=== PATIENT | male | born 1985 | race Hispanic/Latino ===

== ENCOUNTER 2018-12-12 20:42 | Emergency (ER) | payer MEDICAID, OTHER ==
[2018-12-12 21:28] LABS: APPEARANCE,URINE Clear (CLEAR); BILIRUBIN,URINE Moderate (NEGATIVE); COLOR,URINE Dark Yellow (YELLOW); GLUCOSE, URINE (UA) Negative (NEGATIVE); KETONES,URINE Trace mg/dL (NEGATIVE); LEUKOCYTE ESTERASE ,URINE Trace (NEGATIVE); NITRATE,URINE Positive (NEGATIVE); OCCULT BLOOD,URINE Negative (NEGATIVE); PH,URINE 6.5 (5.0-8.0); PROTEIN,URINE Negative (NEGATIVE); UROBILINOGEN,URINE >=8.0 mg/dL (0.2-1.0)
[2018-12-12 21:35] LABS: AMPHET/METH SCREEN,URINE NEGATIVE (NEGATIVE); BARBITURATE SCREEN, URINE NEGATIVE (NEGATIVE); BENZODIAZEPINES SCREEN,URINE NEGATIVE (NEGATIVE); CANNABINOID SCREEN,URINE POSITIVE (NEGATIVE); COCAINE SCREEN,URINE NEGATIVE (NEGATIVE); OPIATE SCREEN,URINE NEGATIVE (NEGATIVE); PHENCYCLIDINE SCREEN,URINE NEGATIVE (NEGATIVE)
[2018-12-12 21:38] LABS: RBC,URINE 0-1 /HPF (0-1); WBC,URINE 0-1 /HPF (0-1)
[2018-12-12 21:39] LABS: BACTERIA,URINE Few /HPF (None Seen); SQUAMOUS EPITHELIAL CELL,UR Rare /HPF (0-2)
[2018-12-12 21:44] LABS: BASOPHILS % (AUTO) 0.4 % (0.0-5.0); EOSINOPHILS % (AUTO) 0.9 % (0.0-8.0); HEMATOCRIT 40.8 % (42-54); LYMPHOCYTES % (AUTO) 18.7 % (21.0-51.0); MEAN CORPUSCULAR HEMOGLOBIN 32.5 pg (27.0-33.0); MEAN CORPUSCULAR VOLUME 92.9 fL (79-99); MONOCYTES % (AUTO) 7.6 % (3.0-13.0); NEUTROPHILS % (AUTO) 72.4 % (40.0-77.0); PLATELET COUNT (AUTO) 59 K/uL (130-400); RED BLOOD CELL COUNT(AUTO) 4.39 MIL/uL (4.50-6.20); RED CELL DISTRIBUTION WIDTH 14.9 % (11.0-15.5); WHITE BLOOD COUNT (AUTO) 7.3 K/uL (4.8-10.8)
[2018-12-12 21:51] LABS: CHLORIDE 98 mmol/L (101-111); CREATININE 0.8 mg/dL (0.5-1.5); GLOMERULAR FILTR. RATE CALC 118 mL/min (>60)
[2018-12-12 21:54] LABS: CARBON DIOXIDE 28 mmol/L (21-32); GLUCOSE,RANDOM 104 mg/dL (70-105); SODIUM SERUM 136 mmol/L (136-145); UREA NITROGEN, BLOOD 7 mg/dL (7-18)
[2018-12-12 21:56] LABS: INR 1.55 (0.85-1.15); PROTHROMBIN TIME 16.1 SEC (9.6-11.6)
[2018-12-12 22:04] LABS: ALBUMIN 3.5 g/dL (3.5-5.0); TOTAL PROTEIN, SERUM 8.5 g/dL (6.0-8.3)
[2018-12-12] MEDS ORDERED: POTASSIUM CHLORIDE 10% ELIXIR 20 MEQ/15 ML UDCUP ONE (22:05)
[2018-12-12 22:06] LABS: PLATELET MORPHOLOGY DECREASED
[2018-12-12 22:07] LABS: ALANINE AMINOTRANSFERASE 65 U/L (12-78); ALCOHOL, BLOOD 49 mg/dL (0-10); ASPARTATE AMINOTRANSFERASE 175 U/L (10-37); BILIRUBIN,TOTAL 6.3 mg/dL (0.2-1.0); LIPASE 408 U/L (114-286)
[2018-12-12 22:11] LABS: ACETAMINOPHEN 33 mcg/mL (10-29); SALICYLATE < 2.8 mg/dL (2.8-20.0)
[2018-12-12 22:12] LABS: CREATINE KINASE, TOTAL 446 U/L (21-232)
[2018-12-13 01:02] LABS: CARBON DIOXIDE 25 mmol/L (21-32); CHLORIDE 102 mmol/L (101-111); CREATININE 0.7 mg/dL (0.5-1.5); GLOMERULAR FILTR. RATE CALC 138 mL/min (>60); GLUCOSE,RANDOM 79 mg/dL (70-105); POTASSIUM 3.2 mmol/L (3.5-5.1); SODIUM SERUM 139 mmol/L (136-145); UREA NITROGEN, BLOOD 8 mg/dL (7-18)
[2018-12-13 01:06] LABS: ALANINE AMINOTRANSFERASE 59 U/L (12-78); ALBUMIN 3.2 g/dL (3.5-5.0); ALCOHOL, BLOOD 9 mg/dL (0-10); ASPARTATE AMINOTRANSFERASE 165 U/L (10-37); BILIRUBIN,TOTAL 5.9 mg/dL (0.2-1.0); CREATINE KINASE, TOTAL 383 U/L (21-232); LIPASE 419 U/L (114-286); TOTAL PROTEIN, SERUM 7.5 g/dL (6.0-8.3)
[2018-12-13 01:13] LABS: ACETAMINOPHEN < 1 mcg/mL (10-29)
[2018-12-13] MEDS ORDERED: POTASSIUM CHLORIDE 20 MEQ ERTAB PO ONE (06:56)
[2018-12-13] MEDS ORDERED: ONDANSETRON HCL 4 MG/2 ML VIAL ONE (08:13)
== END 2018-12-13 09:32 | disposition short-term general hospital (02) ==
LOC: EDH 20:42
DX: E87.6 Hypokalemia (principal); F10.10 Alcohol abuse, uncomplicated; E80.7 Disorder of bilirubin metabolism, unspecified; R79.1 Abnormal coagulation profile; I10 Essential (primary) hypertension
CPT/HCPCS: 36415 ×2; 80053 ×2; 80305; 81001; 82550 ×2; 83605; 83690 ×2; 85025; 85610; 85730; 93005; 96374; 99284; G0480 ×4; G0481; J2405